=== PATIENT | female | born 1950 | race Caucasian/White ===

== ENCOUNTER 2022-12-09 07:16 | Outpatient (CLI) | payer MEDICARE, BC ==
[2022-12-09] MEDS ORDERED: Iopamidol 370 76% 100 ML VIAL ONE (09:01)
== END 2022-12-09 07:17 | disposition home or self-care (01) ==
LOC: CT 07:16
PROVIDERS: ATTEND Urology
DX: N28.89 Other specified disorders of kidney and ureter (principal); I10 Essential (primary) hypertension; R91.8 Other nonspecific abnormal finding of lung field; Z87.898 Personal history of other specified conditions
CPT/HCPCS: 71260; 74170; 78306; A9503; Q9967

== ENCOUNTER 2023-02-01 15:23 | Outpatient (CLI) | payer MEDICARE, BC ==
[2023-02-01 16:46] LABS: Mean Corpuscular HGB CONC 31.7 g/dL (32.0-36.0); Mean Corpuscular Hemoglobin 27.3 pg (27.0-33.0); Mean Corpuscular Volume 86.1 fl (81.6-98.3); Mean Platelet Volume 11.7 fl (7.4-10.4); Platelet Count 309 10x3/uL (150-450); RBC Distribution Width 13.9 % (11.5-14.5); Red Blood Cell (RBC) Count 4.76 10x6/uL (3.90-5.03); White Blood Cell (WBC) Count 9.8 10x3/uL (3.5-10.5)
[2023-02-01 16:56] LABS: PTT 27.9 sec (22.0-33.0); Prothrombin Time 10.4 sec (9.5-12.1)
[2023-02-01 17:00] LABS: Anion Gap 15 mmol/L (10-20); BUN (Urea Nitrogen) 11 mg/dL (9.8-20.1); Calc. Creatinine Clearance 0 mL/min (70-130); Calcium 9.6 mg/dL (7.8-10.44); Carbon Dioxide 25 mmol/L (23-31); Chloride 102 mmol/L (98-107); Estimated GFR 90; Glucose 97 mg/dL (80-115); Potassium 3.9 mmol/L (3.5-5.1); Sodium 138 mmol/L (136-145)
[2023-02-01 17:16] LABS: Bilirubin Neg (Negative); Blood, Urine 10 (Negative); Clarity Clear (Clear); Glucose, Urine (Dipstick) Normal (Negative); Ketone, Urine Negative (Negative); Leukocyte Negative (Negative); Nitrite Negative (Negative); Protein, Urine (Dipstick) Negative (Neg-Trace); Specific Gravity, Urine 1.005 (1.005-1.030); Urobilinogen Normal mg/dL (Less than 2); pH, Urine 6.5 (5.0-9.0)
[2023-02-01 18:09] LABS: Bacteria/HPF Rare-Few HPF (None Seen); RBC/HPF 0-3 HPF (0-3); Squamous Epithelial 0-3 HPF (0-3); WBC/HPF 0-3 HPF (0-3)
== END 2023-02-01 15:24 | disposition home or self-care (01) ==
LOC: LABBT 15:23
PROVIDERS: ATTEND Urology
DX: Z01.818 Encounter for other preprocedural examination (principal); D35.02 Benign neoplasm of left adrenal gland; R91.1 Solitary pulmonary nodule; N28.89 Other specified disorders of kidney and ureter; I10 Essential (primary) hypertension; Z68.41 Body mass index [BMI] 40.0-44.9, adult; Z87.898 Personal history of other specified conditions
CPT/HCPCS: 71046; 80048; 81001; 85027; 85610; 85730; 87086; 93005; 93010

== ENCOUNTER 2023-02-01 15:30 | Inpatient (IN) | payer MEDICARE, BC ==
[2023-02-08] MEDS ORDERED: LevoFLOXacin 500 mg/D5W 100 ML BAG ONE (06:23)
[2023-02-08] MEDS ORDERED: Sodium Chloride 0.9% 0 ML ONE (06:23)
[2023-02-08] MEDS ORDERED: CEFAZOLIN 2 GM VIAL ONE ×2 (06:23→07:35)
[2023-02-08] MEDS ORDERED: Lidocaine 1% MPF 2 ML VIAL ONE (06:23)
[2023-02-08] MEDS ORDERED: fentaNYL PF 100 MCG/2 ML SYRINGE ONE (06:28)
[2023-02-08] MEDS ORDERED: Phenylephrine 10 MG/ML VIAL ONE (06:28)
[2023-02-08] MEDS ORDERED: Midazolam HCl 2 mg/2 ml Vial ONE (07:00)
[2023-02-08] MEDS ORDERED: Bupivacaine 0.25% HCL 30 ML VIAL ONE ×2 (07:17→07:47)
[2023-02-08] MEDS ORDERED: Bacitracin Zinc Ointment 30 gm TUBE ONE (07:17)
[2023-02-08] MEDS ORDERED: EPINEPHrine 1 MG/ML AMP ONE (07:17)
[2023-02-08] MEDS ORDERED: Lidocaine 1% (PF) 30 ML VIAL ONE (07:31)
[2023-02-08] MEDS ORDERED: ePHEDrine Sulfate 50 MG/10 ML VIAL ONE (07:33)
[2023-02-08] MEDS ORDERED: PROPOFOL 200 MG/20 ML VIAL ONE (07:33)
[2023-02-08] MEDS ORDERED: Lidocaine 1% PF 5 ML VIAL ONE (07:33)
[2023-02-08] MEDS ORDERED: NEOSTIGMINE 3 MG/3 ML SYR 3 MG/3 ML SYRINGE ONE (07:33)
[2023-02-08] MEDS ORDERED: Dexamethasone 20 MG/5 ML VIAL ONE (07:33)
[2023-02-08] MEDS ORDERED: Rocuronium Bromide 10 MG/ML (10ML VIAL) ONE (07:33)
[2023-02-08] MEDS ORDERED: PHENYLEPHRINE-NS 100 MCG/ML 10 ML SYRINGE ONE (07:33)
[2023-02-08] MEDS ORDERED: Glycopyrrolate 0.2 MG/ML 5 ML SYRINGE ONE (07:33)
[2023-02-08] MEDS ORDERED: Sodium Chloride 0.9% 100 ML ONE (07:35)
[2023-02-08] MEDS ORDERED: diphenhydrAMINE 50 MG/ML VIAL IM PRN (08:15)
[2023-02-08] MEDS ORDERED: Zolpidem Tartrate 5 MG TAB PO PRN (08:15)
[2023-02-08] MEDS ORDERED: Moisturizing Cream (Eucerin) 113 GM JAR TOP PRN (08:15)
[2023-02-08] MEDS ORDERED: diphenhydrAMINE 50 MG/ML VIAL IVP PRN (08:15)
[2023-02-08] MEDS ORDERED: Naloxone HCl 0.4 mg/ml Vial IV PRN (08:15)
[2023-02-08] MEDS ORDERED: Promethazine HCl 25 MG/ML VIAL IM PRN ×2 (08:15→09:00)
[2023-02-08] MEDS ORDERED: Naloxone HCl 0.4 mg/ml Vial IVP PRN (08:15)
[2023-02-08] MEDS ORDERED: Promethazine HCl 25 MG SUPP PR PRN (08:15)
[2023-02-08] MEDS ORDERED: Bupivacaine 0.25% 10 ML VIAL EPIDURAL PRN (08:15)
[2023-02-08] MEDS ORDERED: diphenhydrAMINE 25 MG CAP PO PRN (08:15)
[2023-02-08] MEDS ORDERED: Ondansetron HCl/PF 4 MG/2 ML Vial IVP PRN (09:00)
[2023-02-08] MEDS ORDERED: Mag-Al 1200 mg/1200 mg/30 ML UDCUP PO PRN (10:26)
[2023-02-08] MEDS ORDERED: Bisacodyl 10 MG SUPP PR PRN (10:26)
[2023-02-08] MEDS ORDERED: hydrALAZINE 20 MG/ML VIAL SLOW IVP PRN (10:26)
[2023-02-08 10:53] LABS: #Basophils 0.1 thou/uL (0.0-0.2); #Monocytes 0.8 thou/uL (0.11-0.59); #Neutrophils 16.5 thou/uL (1.40-6.50); %Basophils 0.4 % (0.0-1.0); %Eosinophils 0.1 % (0.0-10.0); %Lymphocytes 5.5 % (21.0-51.0); %Monocytes 4.4 % (0.0-10.0); %Neutrophils 89.1 % (42.0-75.0); Hematocrit 36.8 % (36.0-47.0); Hemoglobin 11.9 g/dL (12.0-16.0); Mean Corpuscular HGB CONC 32.3 g/dL (32.0-36.0); Mean Corpuscular Hemoglobin 27.7 pg (27.0-31.0); Mean Corpuscular Volume 85.6 fl (78.0-98.0); Mean Platelet Volume 11.4 fL (7.4-10.4); Platelet Count 265 10x3/uL (130-400); RBC Distribution Width 14.1 % (11.5-14.5); White Blood Cell (WBC) Count 18.5 10x3/uL (4.8-10.8)
[2023-02-08 11:15] LABS: Anion Gap 13 mmol/L (10-20); BUN (Urea Nitrogen) 13 mg/dL (9.8-20.1); Calc. Creatinine Clearance 117 mL/min (70-130); Calcium 8.4 mg/dL (7.8-10.44); Carbon Dioxide 19 mmol/L (23-31); Chloride 107 mmol/L (98-107); Estimated GFR 87; Glucose 124 mg/dL (80-115); Potassium 3.7 mmol/L (3.5-5.1); Sodium 135 mmol/L (136-145)
[2023-02-08] MEDS: Sodium Chloride 0.9% 1,000 ML IV SCH ×2 (13:21→17:46)
[2023-02-08] MEDS: Docusate 100 MG CAP PO SCH (20:15)
[2023-02-09] MEDS: Fentanyl/Bupivacaine 100 ML EPIDURAL SCH ×2 (02:14→20:25)
[2023-02-09] MEDS: Sodium Chloride 0.9% 1,000 ML IV SCH ×3 (02:15→20:46)
[2023-02-09 02:25] LABS: #Monocytes 1.2 thou/uL (0.11-0.59); #Neutrophils 12.1 thou/uL (1.40-6.50); %Basophils 0.1 % (0.0-1.0); %Lymphocytes 8.6 % (21.0-51.0); %Monocytes 8.1 % (0.0-10.0); %Neutrophils 82.9 % (42.0-75.0); Hematocrit 37.1 % (36.0-47.0); Hemoglobin 11.9 g/dL (12.0-16.0); Mean Corpuscular HGB CONC 32.1 g/dL (32.0-36.0); Mean Corpuscular Hemoglobin 27.7 pg (27.0-31.0); Mean Corpuscular Volume 86.3 fl (78.0-98.0); Mean Platelet Volume 11.3 fL (7.4-10.4); Platelet Count 251 10x3/uL (130-400); RBC Distribution Width 14.3 % (11.5-14.5); White Blood Cell (WBC) Count 14.6 10x3/uL (4.8-10.8)
[2023-02-09 02:53] LABS: Anion Gap 14 mmol/L (10-20); BUN (Urea Nitrogen) 11 mg/dL (9.8-20.1); Calc. Creatinine Clearance 98 mL/min (70-130); Calcium 8.3 mg/dL (7.8-10.44); Carbon Dioxide 17 mmol/L (23-31); Chloride 108 mmol/L (98-107); Estimated GFR 72; Glucose 108 mg/dL (80-115); Potassium 4.6 mmol/L (3.5-5.1); Sodium 134 mmol/L (136-145)
[2023-02-09] MEDS: cefTRIAXone\\ROCEPHIN 1 GM in Sodium Chloride 0.9% 100 ML IVPB SCH (05:06)
[2023-02-09] MEDS: Levothyroxine Sodium 75 MCG TAB PO SCH (05:06)
[2023-02-09] MEDS: Liothyronine Sodium 5 MCG TAB PO SCH (05:09)
[2023-02-09] MEDS: Docusate 100 MG CAP PO SCH ×2 (09:52→20:29)
[2023-02-09] MEDS: Cholecalciferol 1,000 UNITS (25 MCG) TAB PO SCH (09:52)
[2023-02-10] MEDS: Levothyroxine Sodium 75 MCG TAB PO SCH (05:24)
[2023-02-10] MEDS: Liothyronine Sodium 5 MCG TAB PO SCH (05:24)
[2023-02-10] MEDS: cefTRIAXone\\ROCEPHIN 1 GM in Sodium Chloride 0.9% 100 ML IVPB SCH (05:25)
[2023-02-10] MEDS: Sodium Chloride 0.9% 1,000 ML IV SCH (05:28)
[2023-02-10 06:07] LABS: #Basophils 0.1 thou/uL (0.0-0.2); #Eosinphils 0.1 thou/uL (0.0-0.7); #Monocytes 1.1 thou/uL (0.11-0.59); #Neutrophils 8.3 thou/uL (1.40-6.50); %Basophils 0.5 % (0.0-1.0); %Eosinophils 0.7 % (0.0-10.0); %Lymphocytes 16.6 % (21.0-51.0); %Monocytes 9.9 % (0.0-10.0); Hematocrit 33.3 % (36.0-47.0); Hemoglobin 10.6 g/dL (12.0-16.0); Mean Corpuscular HGB CONC 31.8 g/dL (32.0-36.0); Mean Corpuscular Volume 88.1 fl (78.0-98.0); Mean Platelet Volume 11.4 fL (7.4-10.4); Platelet Count 220 10x3/uL (130-400); RBC Distribution Width 14.5 % (11.5-14.5); Red Blood Cell (RBC) Count 3.78 mill/uL (4.20-5.40); White Blood Cell (WBC) Count 11.5 10x3/uL (4.8-10.8)
[2023-02-10 07:02] LABS: Anion Gap 12 mmol/L (10-20); BUN (Urea Nitrogen) 9 mg/dL (9.8-20.1); Calc. Creatinine Clearance 105 mL/min (70-130); Calcium 8.4 mg/dL (7.8-10.44); Carbon Dioxide 21 mmol/L (23-31); Chloride 107 mmol/L (98-107); Estimated GFR 76; Glucose 99 mg/dL (80-115); Sodium 136 mmol/L (136-145)
[2023-02-10] MEDS: Ondansetron PF 4 MG/2 ML Vial IVP PRN ×2 (09:48→15:58)
[2023-02-10] MEDS: Cholecalciferol 1,000 UNITS (25 MCG) TAB PO SCH (12:14)
[2023-02-10] MEDS: Docusate 100 MG CAP PO SCH ×2 (12:14→21:09)
[2023-02-10] MEDS: Fentanyl/Bupivacaine 100 ML EPIDURAL SCH (15:35)
[2023-02-11] MEDS: cefTRIAXone\\ROCEPHIN 1 GM in Sodium Chloride 0.9% 100 ML IVPB SCH (05:35)
[2023-02-11] MEDS: Ondansetron PF 4 MG/2 ML Vial IVP PRN ×2 (05:36→11:46)
[2023-02-11] MEDS: Liothyronine Sodium 5 MCG TAB PO SCH (05:36)
[2023-02-11] MEDS: Levothyroxine Sodium 75 MCG TAB PO SCH (05:36)
[2023-02-11 05:57] LABS: #Eosinphils 0.1 thou/uL (0.0-0.7); #Neutrophils 10.1 thou/uL (1.40-6.50); %Basophils 0.3 % (0.0-1.0); %Lymphocytes 10.9 % (21.0-51.0); %Monocytes 7.8 % (0.0-10.0); %Neutrophils 79.5 % (42.0-75.0); Hematocrit 36.6 % (36.0-47.0); Hemoglobin 11.6 g/dL (12.0-16.0); Mean Corpuscular HGB CONC 31.7 g/dL (32.0-36.0); Mean Corpuscular Hemoglobin 27.9 pg (27.0-31.0); Mean Platelet Volume 11.5 fL (7.4-10.4); Platelet Count 236 10x3/uL (130-400); RBC Distribution Width 14.1 % (11.5-14.5); Red Blood Cell (RBC) Count 4.16 mill/uL (4.20-5.40); White Blood Cell (WBC) Count 12.7 10x3/uL (4.8-10.8)
[2023-02-11] MEDS ORDERED: Fentanyl/Bupivacaine 100 ML EPIDURAL SCH (06:00)
[2023-02-11 06:24] LABS: Anion Gap 12 mmol/L (10-20); BUN (Urea Nitrogen) 8 mg/dL (9.8-20.1); Calc. Creatinine Clearance 116 mL/min (70-130); Calcium 8.7 mg/dL (7.8-10.44); Carbon Dioxide 21 mmol/L (23-31); Chloride 105 mmol/L (98-107); Estimated GFR 86; Glucose 114 mg/dL (80-115); Potassium 3.5 mmol/L (3.5-5.1); Sodium 134 mmol/L (136-145)
[2023-02-11] MEDS: Cholecalciferol 1,000 UNITS (25 MCG) TAB PO SCH (09:38)
[2023-02-11] MEDS: Docusate 100 MG CAP PO SCH ×2 (09:38→21:15)
[2023-02-11] MEDS: Metoclopramide HCl 10 MG/2 ML VIAL IVP SCH ×2 (13:55→21:15)
[2023-02-12] MEDS: Ondansetron PF 4 MG/2 ML Vial IVP PRN (00:39)
[2023-02-12] MEDS: Metoclopramide HCl 10 MG/2 ML VIAL IVP SCH ×3 (05:10→21:15)
[2023-02-12] MEDS: cefTRIAXone\\ROCEPHIN 1 GM in Sodium Chloride 0.9% 100 ML IVPB SCH (05:10)
[2023-02-12] MEDS: Levothyroxine Sodium 75 MCG TAB PO SCH (05:10)
[2023-02-12] MEDS: Liothyronine Sodium 5 MCG TAB PO SCH (05:10)
[2023-02-12 05:31] LABS: #Eosinphils 0.1 thou/uL (0.0-0.7); #Neutrophils 11.7 thou/uL (1.40-6.50); %Basophils 0.3 % (0.0-1.0); %Eosinophils 0.7 % (0.0-10.0); %Lymphocytes 9.4 % (21.0-51.0); %Monocytes 6.7 % (0.0-10.0); %Neutrophils 82.6 % (42.0-75.0); Hematocrit 38.3 % (36.0-47.0); Hemoglobin 12.5 g/dL (12.0-16.0); Mean Corpuscular HGB CONC 32.6 g/dL (32.0-36.0); Mean Corpuscular Hemoglobin 27.7 pg (27.0-31.0); Mean Platelet Volume 11.5 fL (7.4-10.4); Platelet Count 293 10x3/uL (130-400); RBC Distribution Width 13.7 % (11.5-14.5); Red Blood Cell (RBC) Count 4.52 mill/uL (4.20-5.40); White Blood Cell (WBC) Count 14.1 10x3/uL (4.8-10.8)
[2023-02-12 05:52] LABS: Anion Gap 14 mmol/L (10-20); BUN (Urea Nitrogen) 12 mg/dL (9.8-20.1); Calc. Creatinine Clearance 107 mL/min (70-130); Calcium 8.9 mg/dL (7.8-10.44); Carbon Dioxide 23 mmol/L (23-31); Chloride 101 mmol/L (98-107); Estimated GFR 78; Glucose 118 mg/dL (80-115); Potassium 3.6 mmol/L (3.5-5.1); Sodium 134 mmol/L (136-145)
[2023-02-12 06:42] LABS: Mean Corpuscular Volume 84.7 fl (78.0-98.0)
[2023-02-12] MEDS ORDERED: HYDROcodone/Acetaminophen 5/325 mg Tablet PO PRN (07:48)
[2023-02-12] MEDS ORDERED: Morphine 2 MG/ML VIAL SLOW IVP PRN (07:48)
[2023-02-12] MEDS: Cholecalciferol 1,000 UNITS (25 MCG) TAB PO SCH (09:13)
[2023-02-12] MEDS: Calcium Carbonate 500 MG TAB PO SCH (09:13)
[2023-02-12] MEDS: Lisinopril 20 MG TAB PO SCH (09:13)
[2023-02-12] MEDS: Sodium Chloride 0.9% 1,000 ML IV SCH ×3 (09:14→21:18)
[2023-02-12] MEDS: Docusate 100 MG CAP PO SCH ×2 (09:14→21:14)
[2023-02-12] MEDS: traMADol HCl 50 MG TAB PO PRN ×2 (13:20→21:36)
[2023-02-12] MEDS: HYDROcodone/Acetaminophen 5/325 mg Tablet PO PRN (16:01)
[2023-02-13] MEDS: traMADol HCl 50 MG TAB PO PRN ×2 (03:35→08:31)
[2023-02-13] MEDS: Levothyroxine Sodium 75 MCG TAB PO SCH (05:51)
[2023-02-13] MEDS: cefTRIAXone\\ROCEPHIN 1 GM in Sodium Chloride 0.9% 100 ML IVPB SCH (05:51)
[2023-02-13] MEDS: Liothyronine Sodium 5 MCG TAB PO SCH (05:51)
[2023-02-13] MEDS: Metoclopramide HCl 10 MG/2 ML VIAL IVP SCH ×3 (05:51→21:07)
[2023-02-13 06:29] LABS: #Basophils 0.1 thou/uL (0.0-0.2); #Eosinphils 0.2 thou/uL (0.0-0.7); #Neutrophils 9.1 thou/uL (1.40-6.50); %Basophils 0.6 % (0.0-1.0); %Lymphocytes 11.2 % (21.0-51.0); %Monocytes 8.4 % (0.0-10.0); %Neutrophils 77.4 % (42.0-75.0); Hematocrit 32.6 % (36.0-47.0); Hemoglobin 10.6 g/dL (12.0-16.0); Mean Corpuscular HGB CONC 32.5 g/dL (32.0-36.0); Mean Corpuscular Hemoglobin 27.9 pg (27.0-31.0); Mean Corpuscular Volume 85.8 fl (78.0-98.0); Mean Platelet Volume 11.3 fL (7.4-10.4); Platelet Count 289 10x3/uL (130-400); White Blood Cell (WBC) Count 11.7 10x3/uL (4.8-10.8)
[2023-02-13 06:56] LABS: Anion Gap 12 mmol/L (10-20); BUN (Urea Nitrogen) 12 mg/dL (9.8-20.1); Calc. Creatinine Clearance 113 mL/min (70-130); Calcium 8.2 mg/dL (7.8-10.44); Carbon Dioxide 24 mmol/L (23-31); Chloride 104 mmol/L (98-107); Estimated GFR 83; Glucose 98 mg/dL (80-115); Potassium 3.6 mmol/L (3.5-5.1); Sodium 136 mmol/L (136-145)
[2023-02-13] MEDS: Docusate 100 MG CAP PO SCH ×2 (08:30→20:08)
[2023-02-13] MEDS: Calcium Carbonate 500 MG TAB PO SCH (08:30)
[2023-02-13] MEDS: Lisinopril 20 MG TAB PO SCH (08:31)
[2023-02-13] MEDS: Cholecalciferol 1,000 UNITS (25 MCG) TAB PO SCH (08:31)
[2023-02-13] MEDS: Sodium Chloride 0.9% 1,000 ML IV SCH (08:33)
[2023-02-13] MEDS: Acetaminophen 500 MG TAB PO PRN (20:08)
[2023-02-14] MEDS: Sodium Chloride 0.9% 1,000 ML IV SCH ×3 (00:41→21:17)
[2023-02-14] MEDS: Levothyroxine Sodium 75 MCG TAB PO SCH (06:09)
[2023-02-14] MEDS: Liothyronine Sodium 5 MCG TAB PO SCH (06:09)
[2023-02-14] MEDS: Metoclopramide HCl 10 MG/2 ML VIAL IVP SCH ×3 (06:10→21:16)
[2023-02-14] MEDS: cefTRIAXone\\ROCEPHIN 1 GM in Sodium Chloride 0.9% 100 ML IVPB SCH (06:10)
[2023-02-14] MEDS: Acetaminophen 500 MG TAB PO PRN (06:15)
[2023-02-14 08:12] LABS: #Basophils 0.1 thou/uL (0.0-0.2); #Eosinphils 0.3 thou/uL (0.0-0.7); #Monocytes 0.8 thou/uL (0.11-0.59); #Neutrophils 7.9 thou/uL (1.40-6.50); %Basophils 0.7 % (0.0-1.0); %Monocytes 7.8 % (0.0-10.0); %Neutrophils 75.1 % (42.0-75.0); Hematocrit 33.1 % (36.0-47.0); Hemoglobin 10.8 g/dL (12.0-16.0); Mean Corpuscular HGB CONC 32.6 g/dL (32.0-36.0); Mean Corpuscular Hemoglobin 28.1 pg (27.0-31.0); Platelet Count 283 10x3/uL (130-400); RBC Distribution Width 14.1 % (11.5-14.5); Red Blood Cell (RBC) Count 3.85 mill/uL (4.20-5.40); White Blood Cell (WBC) Count 10.6 10x3/uL (4.8-10.8)
[2023-02-14 08:33] LABS: Anion Gap 13 mmol/L (10-20); BUN (Urea Nitrogen) 11 mg/dL (9.8-20.1); Calc. Creatinine Clearance 128 mL/min (70-130); Carbon Dioxide 21 mmol/L (23-31); Chloride 106 mmol/L (98-107); Estimated GFR 94; Glucose 95 mg/dL (80-115); Potassium 3.4 mmol/L (3.5-5.1); Sodium 137 mmol/L (136-145)
[2023-02-14] MEDS: Calcium Carbonate 500 MG TAB PO SCH (08:58)
[2023-02-14] MEDS: Docusate 100 MG CAP PO SCH ×2 (08:58→21:16)
[2023-02-14] MEDS: Cholecalciferol 1,000 UNITS (25 MCG) TAB PO SCH (08:58)
[2023-02-14] MEDS: Lisinopril 20 MG TAB PO SCH (08:58)
[2023-02-14] MEDS ORDERED: Potassium Chloride 20 MEQ TAB PO SCH (13:30)
[2023-02-14 18:29] VITALS: BMI 39.8
[2023-02-15] MEDS: Metoclopramide HCl 10 MG/2 ML VIAL IVP SCH ×3 (06:04→21:00)
[2023-02-15] MEDS: cefTRIAXone\\ROCEPHIN 1 GM in Sodium Chloride 0.9% 100 ML IVPB SCH (06:04)
[2023-02-15] MEDS: Levothyroxine Sodium 75 MCG TAB PO SCH (06:05)
[2023-02-15] MEDS: Liothyronine Sodium 5 MCG TAB PO SCH (06:05)
[2023-02-15] MEDS: HYDROcodone/Acetaminophen 5/325 mg Tablet PO PRN ×2 (06:05→21:05)
[2023-02-15 06:49] LABS: #Basophils 0.1 thou/uL (0.0-0.2); #Eosinphils 0.5 thou/uL (0.0-0.7); #Monocytes 0.8 thou/uL (0.11-0.59); %Basophils 0.9 % (0.0-1.0); %Eosinophils 4.3 % (0.0-10.0); %Monocytes 7.8 % (0.0-10.0); %Neutrophils 74.5 % (42.0-75.0); Hematocrit 33.2 % (36.0-47.0); Hemoglobin 10.8 g/dL (12.0-16.0); Mean Corpuscular HGB CONC 32.5 g/dL (32.0-36.0); Mean Corpuscular Hemoglobin 27.8 pg (27.0-31.0); Mean Corpuscular Volume 85.6 fl (78.0-98.0); Mean Platelet Volume 11.1 fL (7.4-10.4); Platelet Count 285 10x3/uL (130-400); RBC Distribution Width 14.4 % (11.5-14.5); Red Blood Cell (RBC) Count 3.88 mill/uL (4.20-5.40); White Blood Cell (WBC) Count 10.8 10x3/uL (4.8-10.8)
[2023-02-15 07:21] LABS: Anion Gap 13 mmol/L (10-20); BUN (Urea Nitrogen) 12 mg/dL (9.8-20.1); Calc. Creatinine Clearance 130 mL/min (70-130); Calcium 8.2 mg/dL (7.8-10.44); Carbon Dioxide 21 mmol/L (23-31); Chloride 106 mmol/L (98-107); Estimated GFR 94; Glucose 83 mg/dL (80-115); Potassium 3.8 mmol/L (3.5-5.1); Sodium 136 mmol/L (136-145)
[2023-02-15] MEDS: Sodium Chloride 0.9% 1,000 ML IV SCH ×2 (09:08→18:32)
[2023-02-15] MEDS: Docusate 100 MG CAP PO SCH ×2 (09:09→21:00)
[2023-02-15] MEDS: Calcium Carbonate 500 MG TAB PO SCH (09:10)
[2023-02-15] MEDS: Lisinopril 20 MG TAB PO SCH (09:10)
[2023-02-15] MEDS: Cholecalciferol 1,000 UNITS (25 MCG) TAB PO SCH (09:11)
[2023-02-16] MEDS: Levothyroxine Sodium 75 MCG TAB PO SCH (05:52)
[2023-02-16] MEDS: Liothyronine Sodium 5 MCG TAB PO SCH (05:52)
[2023-02-16] MEDS: Metoclopramide HCl 10 MG/2 ML VIAL IVP SCH ×3 (05:52→20:32)
[2023-02-16] MEDS: Cholecalciferol 1,000 UNITS (25 MCG) TAB PO SCH (08:40)
[2023-02-16] MEDS: Docusate 100 MG CAP PO SCH ×2 (08:40→20:27)
[2023-02-16] MEDS: Lisinopril 20 MG TAB PO SCH (08:40)
[2023-02-16] MEDS: Calcium Carbonate 500 MG TAB PO SCH (08:40)
[2023-02-16 08:41] LABS: Hemoglobin 10.4 g/dL (12.0-16.0); Mean Corpuscular HGB CONC 32.5 g/dL (32.0-36.0); Mean Corpuscular Hemoglobin 27.9 pg (27.0-31.0); Mean Corpuscular Volume 85.8 fl (78.0-98.0); Mean Platelet Volume 10.8 fL (7.4-10.4); Platelet Count 298 10x3/uL (130-400); RBC Distribution Width 14.3 % (11.5-14.5); Red Blood Cell (RBC) Count 3.73 mill/uL (4.20-5.40); White Blood Cell (WBC) Count 9.4 10x3/uL (4.8-10.8)
[2023-02-16 09:08] LABS: Anion Gap 13 mmol/L (10-20); BUN (Urea Nitrogen) 7 mg/dL (9.8-20.1); Calc. Creatinine Clearance 126 mL/min (70-130); Calcium 8.5 mg/dL (7.8-10.44); Carbon Dioxide 24 mmol/L (23-31); Chloride 105 mmol/L (98-107); Estimated GFR 93; Glucose 91 mg/dL (80-115); Potassium 3.3 mmol/L (3.5-5.1); Sodium 139 mmol/L (136-145)
[2023-02-16] MEDS: Sodium Chloride 0.9% 1,000 ML IV SCH (10:47)
[2023-02-17] MEDS: Metoclopramide HCl 10 MG/2 ML VIAL IVP SCH (06:04)
[2023-02-17] MEDS: Liothyronine Sodium 5 MCG TAB PO SCH (06:05)
[2023-02-17] MEDS: Levothyroxine Sodium 75 MCG TAB PO SCH (06:05)
[2023-02-17] MEDS: Cholecalciferol 1,000 UNITS (25 MCG) TAB PO SCH (08:29)
[2023-02-17] MEDS: Calcium Carbonate 500 MG TAB PO SCH (08:29)
[2023-02-17] MEDS: Lisinopril 20 MG TAB PO SCH (08:29)
[2023-02-17] MEDS: Docusate 100 MG CAP PO SCH (08:29)
[2023-02-17 08:32] VITALS: BP 137/78; TEMP 98.2
== END 2023-02-17 11:41 | disposition home health service (06) | DRG 657 ==
LOC: SURG A 02-08 06:03 → CCU 02-08 14:20 → SURG B 02-09 17:54
PROVIDERS: ADMIT Urology; ATTEND Urology
PROC: 0TT00ZZ Resection of Right Kidney, Open Approach (ICD-10-PCS; principal; 2023-02-08)
PROC: 5A09357 Assistance with Respiratory Ventilation, Less than 24 Consecutive Hours, Continuous Positive Airway Pressure (ICD-10-PCS; 2023-02-10)
DX: C64.1 Malignant neoplasm of right kidney, except renal pelvis (principal); K56.7 Ileus, unspecified; Z68.41 Body mass index [BMI] 40.0-44.9, adult; K91.89 Other postprocedural complications and disorders of digestive system; D35.02 Benign neoplasm of left adrenal gland; I10 Essential (primary) hypertension; R91.1 Solitary pulmonary nodule; M19.90 Unspecified osteoarthritis, unspecified site; Z79.899 Other long term (current) drug therapy; Z90.710 Acquired absence of both cervix and uterus; Z98.890 Other specified postprocedural states; E66.01 Morbid (severe) obesity due to excess calories; Z88.2 Allergy status to sulfonamides
CPT/HCPCS: 36415; 71046; 74019; 80048; 85025; 85027; 86850; 86900; 86901; 88307; 94640; A4314; A4649; C1713; C1751; C1776; C1889; J0171; J0696; J1100; J1642; J1956; J2001; J2250; J2370; J2405; J2704; J2765; J3490; J7050; S0020

== ENCOUNTER 2024-02-24 14:40 | Outpatient (CLI) | payer MEDICARE | END 2024-02-24 14:41 | disposition home or self-care (01) | LOC: ULT 14:40 | PROVIDERS: ATTEND Urology | DX: R60.0 Localized edema (principal); C64.1 Malignant neoplasm of right kidney, except renal pelvis; R29.898 Other symptoms and signs involving the musculoskeletal system; Z90.5 Acquired absence of kidney | CPT/HCPCS: 80053; 82248; 83615; 84100; 84436; 84443; 84550; 85025; 93970 ==

== ENCOUNTER 2024-10-25 12:54 | Outpatient (CLI) | payer MEDICARE ==
[2024-10-25 14:26] LABS: #Basophils 0.13 10x3/uL (0.0-0.2); #Eosinophils 0.26 10x3/uL (0.0-0.7); #Monocytes 0.84 10x3/uL (0.11-0.59); #Neutrophils 6.78 10x3/uL (1.40-6.50); %Basophils 1.2 % (0.0-1.0); %Eosinophils 2.4 % (0.0-10.0); %Lymphocytes 26.5 % (21.0-51.0); %Monocytes 7.6 % (0.0-10.0); %Neutrophils 61.7 % (42.0-75.0); Hematocrit 40.2 % (36.0-47.0); Hemoglobin 12.6 g/dL (12.0-16.0); Mean Corpuscular Hemoglobin 27.0 pg (27.0-31.0); Mean Corpuscular Volume 86.3 fL (78.0-98.0); Platelet Count 321 10x3/uL (130-400); Red Blood Cell (RBC) Count 4.66 mill/uL (4.20-5.40); White Blood Cell (WBC) Count 10.99 10x3/uL (4.8-10.8)
[2024-10-25 14:45] LABS: Anion Gap 15 mmol/L (10-20); BUN (Urea Nitrogen) 10 mg/dL (9.8-20.1); Calc. Creatinine Clearance 0 mL/min (70-130); Calcium 9.3 mg/dL (7.8-10.44); Carbon Dioxide 27 mmol/L (23-31); Chloride 103 mmol/L (98-107); Glucose 79 mg/dL (83-110); Potassium 3.7 mmol/L (3.5-5.1); Sodium 141 mmol/L (136-145)
[2024-10-25 14:51] LABS: Bacteria/HPF None Seen HPF (None Seen); Glucose, Urine (Dipstick) Normal (Negative); Leukocyte Negative Leu/uL (Negative); Protein, Urine (Dipstick) Negative (Neg-Trace); RBC/HPF 0-3 HPF (0-3); Specific Gravity, Urine 1.006 (1.002-1.036); WBC/HPF 0-3 HPF (0-3)
[2024-10-25 15:05] LABS: INR-International Normal Ratio 1.0; Prothrombin Time 13.7 sec (12.0-14.7)
== END 2024-10-25 12:55 | disposition home or self-care (01) ==
LOC: LABBT 12:54
PROVIDERS: ATTEND Orthopaedic Surgery
DX: Z01.818 Encounter for other preprocedural examination (principal); M17.11 Unilateral primary osteoarthritis, right knee
CPT/HCPCS: 71046; 80048; 81001; 85025; 85610; 87081